=== PATIENT | female | born 1965 | race Caucasian/White ===

== ENCOUNTER → 2023-01-03 | Outpatient (CLI) | payer BC, SELFPAY ==
--- NOTE | 2023-01-03 | BRBX_PTH ---
PATIENT: LISBETH BARBOSA V LOC: [facility] U#:[id number] AGE/SX: 57/F ROOM: RE01/03/[address]: Dr. Lorena Dudley MD : 1965 BED: DIS: 01/03/2023 SPEC #: [id number] RECD: 01/03/23 13:32 STATUS: DIPTI RETracie #: [id number] MARCELO: 01/03/23 00:[address]: Lorena Dudley DEPT: SURGICAL PATHOLOGY RECD BY: Raymundo Reese ENTERED: 01/03/23 13:33 SP TYPE: BREAST BX OTHR DR: JEVON Ocampo Tissues: A - Right breast, NOS B - Left breast, NOS Procedures: Surgery Specimen Level IV HEADER OPERATION: Bilateral breast stereotactic biopsy PRE-OP DIAGNOSIS: Bilateral calcifications TISSUE SUBMITTED: A ? Right breast anterior depth, B ? Left breast lateral ISCHEMIC TIME: 1 minute FIXATION TIME: 7 hours MICROSCOPIC DIAGNOSIS A. Right breast, anterior, core biopsy: Focal intraductal hyperplasia without atypia. Fibrocystic change with polarizable microcalcifications. No evidence of malignancy. B. Left breast, lateral, core biopsy: Fibrocystic change with associated microcalcifications. No evidence of malignancy. AM:zina 01/04/2023 MICROSCOPIC DESCRIPTION Slides are reviewed. GROSS DESCRIPTION A - Received in fixative is one container labeled with the patient's name and designated right breast. The specimen consists of multiple elongated fragments of mcclendon-yellow fibroadipose tissue that in aggregate measure 3.0 x 2.0 x 0.3 cm. The entire specimen is submitted in two cassettes. B - Received in fixative is one container labeled with the patient's name and designated left breast. The specimen consists of multiple elongated fragments of mcclendon-yellow fibroadipose tissue that in aggregate measure 5.0 x 3.0 x 0.3 cm. The entire specimen is submitted in two cassettes. / SJ:zina 01/03/2023 TC:5 CPT: 32009 x2
--- NOTE | 2023-01-03 12:34 | OP.PCM_ITS ---
Report of Operation Date of Procedure: 01/03/23 Pre-Operative Diagnosis: Bilateral breast microcalcifications Post-Operative Diagnosis: Same Surgery/Procedure Performed:: Bilateral stereotactic guided breast biopsy Surgeon: Lorena Dudley Specimen's removed: 1. Right microcalcifications anterior depth, 2. Left microcalcifications?lateral Estimated Blood Loss (mL): 10 cc Description of Procedure: Procedure: Bilateral stereotactic core biopsy Indications: 57 year-old female with microcalcifications in the bilateral breast (right anterior depth, left ?lateral). Risk benefits were discussed the patient and she elected to proceed with stereotactic core biopsy with clip placement Description of procedure: Patient was brought into the mammography suite and laid prone on the stereotactic table. A timeout was completed verifying correct patient, procedure, site, specially, prior to beginning procedure. Both procedures were done similarly. The appropriate breast was prepped and draped in usual sterile fashion and using local anesthesia was obtained with 1% lidocaine with epi. Patient's breast was positioned and placed into comp ression. Initial film showed calcifications are in the center of the compression paddle. 15? views were then taken. The calcifications were localized. The left breast was prepped draped in usual sterile fashion. An 8- gauge mammotome was set up according to the digital coordinates. The tract of the mammotome was anesthetized with local anesthesia and an incision was made with the 11 blade scalpel at the entry site. The mammotome was advanced to the prefire state. Pre-prior films were checked and verified. The mammotome was fired. Post fire films were also checked and verified. Biopsies were taken from 9:00 to 2:00 in bilateral breasts. The specimen was x-rayed and all the calcifications were within the specimen. Petite mammotome clip was placed at the 12 o'clock position for bilateral breast. The mammotome was removed from the breast. An additional films were taken which showed all calcifications were removed and a clip was in place. Pressure was held for hemostasis. Once hemostasis was assured the wound was dressed with Steri-Strips and OpSite. Patient had 2 view mammogram bilaterally to document clip placement. Clips were verified. The patient tolerated the procedure well and was discharged from the mammography suite good condition. Complications none
== END | disposition home or self-care (01) ==
PROVIDERS: Visit Provider Surgery
DX: N62 Hypertrophy of breast (principal); R92.1 Mammographic calcification found on diagnostic imaging of breast
CPT/HCPCS: 19081; 19082; 88305; J7050